=== PATIENT | male | born 1970 | race African-American/Black ===

== ENCOUNTER 2018-12-08 09:49 | Observation (INO) | payer OTHER ==
[~2018-12-08] VITALS: Ht 188 cm; Wt 97.7 kg
[2018-12-08] MEDS ORDERED: KETOROLAC 30 MG/ML VIAL (J1885) IV ONE (10:30)
--- NOTE | 2018-12-08 10:30 | REP ---
Portable chest: Single view. History: Chest pain. Comparison study: No comparison study. Findings: EKG monitoring electrodes overlie the chest. Lungs are well inflated and clear. Heart size is normal. Pulmonary vasculature is not increased. Pleural angles are sharp. No bony abnormality is seen. Impression: Negative portable chest x-ray. Electronically Signed by Alec Qureshi MD 12/08/2018 10:21 A
[2018-12-08 10:48] LABS: BASO % 0.6 % (0.0-1.0); EOS # 0.3 10^3/uL (0.0-0.50); EOS % 5.3 % (0.0-3.0); HEMATOCRIT 43.6 % (42.0-52.0); HEMOGLOBIN 13.9 g/dl (13.5-17.5); LYMPH # 1.7 10^3/uL (1.5-4.5); LYMPH % 32.8 % (24.0-44.0); MEAN CORPUSCULAR HEMOGLOBIN 23.7 pg (27.0-33.0); MEAN CORPUSCULAR HGB CONC 31.9 g/dl (32.0-36.5); MEAN CORPUSCULAR VOLUME 74.4 fl (80.0-96.0); MONO # 0.6 10^3/uL (0.0-0.8); MONO % 11.8 % (0.0-5.0); NEUTROPHILS # 2.6 10^3/uL (1.8-7.7); NEUTROPHILS % 49.1 % (36.0-66.0); PLATELET COUNT, AUTOMATED 275 10^3/uL (150-450); RED BLOOD COUNT 5.86 10^6/uL (4.30-6.10); WHITE BLOOD COUNT 5.3 10^3/uL (4.0-10.0)
[2018-12-08 11:01] LABS: INR 0.97
[2018-12-08 11:04] LABS: D-DIMER QUANT 542.82 ng/ml (<500)
[2018-12-08 11:09] LABS: ALBUMIN 4.2 GM/DL (3.2-5.2); ALT/SGPT 27 U/L (12-78); BILIRUBIN,DIRECT 0.2 MG/DL (0.0-0.2); BLOOD UREA NITROGEN 18 MG/DL (7-18); CALCIUM LEVEL 9.7 MG/DL (8.5-10.1); CARBON DIOXIDE LEVEL 27 MEQ/L (21-32); CHLORIDE LEVEL 101 MEQ/L (98-107); CPK CREATINE PHOSPHOKINASE 300 U/L (39-308); CREATININE FOR GFR 1.02 MG/DL (0.70-1.30); GLOMERULAR FILTRATION RATE > 60.0 (>60); GLUCOSE, FASTING 87 MG/DL (70-100); LIPASE 100 U/L (73-393); MB/CK RELATIVE INDEX 1.13 (< OR =4); NT-PRO BNP 14 PG/ML (<125); POTASSIUM SERUM 5.4 MEQ/L (3.5-5.1); SODIUM LEVEL 137 MEQ/L (136-145); TOTAL PROTEIN 8.9 GM/DL (6.4-8.2); TROPONIN I < 0.02 NG/ML (< 0.10)
[2018-12-08] MEDS ORDERED: ISOVUE-370 76% 100ML VIAL (Q9967) As Ordered ONE (11:17)
--- NOTE | 2018-12-08 11:53 | REP ---
CT pulmonary angiogram: With IV contrast. History: Pleuritic chest pain. Elevated D-dimer. Comparison studies: Comparison is made with today's chest x-ray. Contrast dose: 75 ML of Isovue [address] technique: Helical scanning is acquired and overlapping 1.5 mm and contiguous 3 mm axial images are reformatted. In addition, maximum intensity projection and multiplanar re-formation images are generated in sagittal and coronal imaging projections. CT pulmonary angiographic findings: There is good opacification of the pulmonary arterial tree. Maximal intensity projection images and MPR and axial images show no filling defect or vessel cutoff in the pulmonary arterial tree to suggest pulmonary embolus. Thoracic aorta shows no evidence of aneurysm or dissection. There is no evidence of pleural or pericardial effusion. No hilar or mediastinal mass or adenopathy is observed. No adrenal lesion is seen. The visualized upper abdominal structures are unremarkable. No bony destructive lesion or fracture is noted. The lung boyer are clear. No pulmonary nodule is seen. There is some fissural thickening in the minor fissure. Impression: No CT evidence of pulmonary embolus. Negative CT pulmonary angiogram. Electronically Signed by Alec Qureshi MD 12/08/2018 11:46 A
[2018-12-08 12:28] LABS: CPK CREATINE PHOSPHOKINASE 253 U/L (39-308); MB/CK RELATIVE INDEX 1.15 (< OR =4); TROPONIN I < 0.02 NG/ML (< 0.10)
[2018-12-08 15:05] LABS: POTASSIUM SERUM 6.1 MEQ/L (3.5-5.1)
[2018-12-08] MEDS ORDERED: NS 1,000 ML IV ONE (15:30)
[2018-12-08] MEDS ORDERED: ACETAMINOPHEN TAB 650MG DOSE (2X325MG) PO PRN (16:15)
[2018-12-08] MEDS ORDERED: CALCIUM GLUCONATE 1,000 MG in D5W MINI-BAG PLUS 100 ML IV ONE (16:15)
[2018-12-08 16:33] LABS: MAGNESIUM LEVEL 2.2 MG/DL (1.8-2.4); PHOSPHORUS LEVEL 3.3 MG/DL (2.5-4.9)
--- NOTE | 2018-12-08 16:42 | HPE ---
DATE OF ADMISSION: 12/08/2018 He does not have a primary care provider. Attending with be Dr. Pablito Lisa. CHIEF COMPLAINT: Chest pain. HISTORY OF PRESENT ILLNESS: The patient is a 48-year-old, male who came from the [facility] for chest pain. History is provided by himself. He stated he did not have any medical problems in the past, he did not take any medications. Since last night, he started to develop some chest pain which is located in the front chest, the worst pain is about a 6, the pain is a constant pain, it is a sharp pain and any deep breathing makes the pain worse. No fever, no chills, no nausea, no vomiting. In the emergency room (ER), his initial workup was negative including troponin times two inactive nd EKG is normal and also had a CT angiogram of chest which also did not show any evidence of blood clot. However, his potassium level was 5.4 initially and repeat went up to 6.1, so the medicine service was called for admission. REVIEW OF SYSTEMS: Denies fever, no chills. No headache, blurry vision. No shortness of breath, no coughing. Positive chest pain. No nausea, no vomiting, no abdominal pain, no diarrhea, no constipation. No tingling, weakness, or numbness in arms or lower extremities. All other systems reviewed but negative. PAST MEDICAL HISTORY: None. PAST SURGICAL HISTORY: None. ALLERGIES: No known drug allergies. SOCIAL HISTORY: Denies tobacco use. Denies alcohol abuse. Denies illicit drug abuse. Currently he is in snf. He is FULL CODE. FAMILY HISTORY: No family history of coronary artery disease or diabetes. MEDICATIONS: Did not take any regular medications. PHYSICAL EXAMINATION: VITAL SIGNS: Temperature 96.8, heart rate 50, respiratory rate 18, blood pressure 112/69, oxygen saturation 100% in room air. GENERAL: He is awake, alert, oriented times three. He is not in acute distress. HEENT: Atraumatic. Pupils equal, round, reactive to light. No jaundice. Extraocular muscles intact. Ears, nose, and throat normal. Mouth: Mucosa not dry. NECK: No jugular venous distention (JVD), no bruits. LUNGS: Clear, no wheezing, no crackles. HEART: S1, S2, regular, no murmur. ABDOMEN: Soft, bowel sounds positive, nontender. LOWER EXTREMITIES: He does not have edema in his bilateral lower extremities. NEUROLOGIC: Nonfocal. SKIN: No rash. PSYCHOLOGIC: No acute psychosis. DIAGNOSTIC AND LABORATORIES: Include the following: CBC and differential: WBC 5.3, hemoglobin and hematocrit 14/44, platelets 275. Sodium 137, potassium 5.4, initially up to 6.1, chloride 101, bicarbonate 27, BUN 18, creatinine 0.6, glucose 87, troponin times two is negative, CK within normal limits. EKG sinus bradycardia with some peak T-waves. IMPRESSION: 1. Pleuritic chest pain. 2. Hyperkalemia. PLAN: Patient will be admitted to progressive care unit (PCU) for observation. The underlying of his increased potassium level is not clear. Will give him calcium gluconate plus Kayexalate. Will repeat potassium level in the morning. STEVED
[2018-12-08 17:14] VITALS: BP 137/99
[2018-12-08] MEDS: PATIROMER SORBITEX CALCIUM 8.4 GM POWDER PACKET (VELTASSA) PO SCH (19:32)
[2018-12-08 20:00] VITALS: BP 127/68
[2018-12-08 20:29] LABS: BLOOD UREA NITROGEN 16 MG/DL (7-18); CALCIUM LEVEL 9.1 MG/DL (8.5-10.1); CARBON DIOXIDE LEVEL 31 MEQ/L (21-32); CHLORIDE LEVEL 103 MEQ/L (98-107); CREATININE FOR GFR 1.21 MG/DL (0.70-1.30); GLOMERULAR FILTRATION RATE > 60.0 (>60); GLUCOSE, FASTING 94 MG/DL (70-100); SODIUM LEVEL 138 MEQ/L (136-145)
[2018-12-09] VITALS: BP 109/59
[2018-12-09 04:00] VITALS: BP 109/62
[2018-12-09 04:57] LABS: BLOOD UREA NITROGEN 18 MG/DL (7-18); CALCIUM LEVEL 8.9 MG/DL (8.5-10.1); CARBON DIOXIDE LEVEL 27 MEQ/L (21-32); CHLORIDE LEVEL 105 MEQ/L (98-107); CREATININE FOR GFR 1.14 MG/DL (0.70-1.30); GLOMERULAR FILTRATION RATE > 60.0 (>60); GLUCOSE, FASTING 90 MG/DL (70-100); POTASSIUM SERUM 4.5 MEQ/L (3.5-5.1); SODIUM LEVEL 139 MEQ/L (136-145)
[2018-12-09 08:00] VITALS: BP 134/71
[2018-12-09] MEDS ORDERED: ENOXAPARIN 40 MG/0.4 ML SYRINGE (J1650) SC SCH (09:00)
[2018-12-09 09:39] LABS: CPK CREATINE PHOSPHOKINASE 186 U/L (39-308); MB/CK RELATIVE INDEX 1.02 (< OR =4); TROPONIN I < 0.02 NG/ML (< 0.10)
--- NOTE | 2018-12-09 10:38 | ECGEPIP ---
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
[2018-12-09] MEDS: PATIROMER SORBITEX CALCIUM 8.4 GM POWDER PACKET (VELTASSA) PO SCH (12:30)
--- NOTE | 2018-12-09 14:16 | DS.PDOC ---
Discharge Summary General Date of Admission Dec 08, 2018 at 16:05 Date of Discharge 12/09/18 Discharge Summary PROCEDURES PERFORMED DURING STAY: None. ADMITTING/DISCHARGE DIAGNOSES: Hyperkalemia Chest pain COMPLICATIONS/CHIEF COMPLAINT: Hyperkalemia. HISTORY OF PRESENT ILLNESS: . 48-year-old male with no significant past medical history presented from the [facility] with the chief complaint of chest pain. The patient stated that he was developing substernal chest pain which he described as sharp and worse when taking a deep breath. The patient also stated that the pain was reproducible upon pushing on the chest wall. He also noted that he had been dealing with a runny nose during this time, and a cough when he laying down. He denied any complaints of fevers, chills, shortness breath, palpitations, numbness/tingling of the left arm or neck, abdominal pain, or any nausea/vomiting/diarrhea. He also denied any family history of coronary artery disease. In the ER, initial troponin markers were negative 2, and an EKG did not reveal any acute ST changes. However, the patient was noted to be hyperkalemic with a serum potassium of 5.4 and 6.1 on repeat. The patient was admitted to the hosp italist service for further evaluation and management. During hospitalization, the patient was provided with calcium gluconate and veltassa and his follow-up serum potassium levels were noted to be within normal limits. The patient denied any supplemental intake of potassium. He is also not on any medications at baseline. It is unclear why the patient's serum potassium level was elevated, and could have possibly been attributed to hemolysis. At this time given that the patient's serum potassium level has normalized, and he had no acute events on telemetry we will discharge the patient back to his original facility. I've advised the patient follow-up with a primary care physician within 7 days. He has been instructed to return to the ER for any acute emergencies. DISCHARGE MEDICATIONS: Please see below. ALLERGIES: Please see below. PHYSICAL EXAMINATION ON DISCHARGE: VITAL SIGNS: Please see below. GENERAL: Awake, alert, oriented 3. No acute distress HEENT: Normocephalic, atraumatic NECK: No JVD CARDIOVASCULAR EXAMINATION: Normal rate, normal S1, S2 RESPIRATORY EXAMINATION: Clear to auscultation bilaterally ABDOMINAL EXAMINATION: Soft, nontender, nondistended EXTREMITIES: No erythema or tenderness noted LABORATORY DATA: Please see below. IMAGING: CT pulmonary angiogram: With IV contrast. History: Pleuritic chest pain. Elevated D-dimer. Comparison studies: Comparison is made with today's chest x-ray. Contrast dose: 75 ML of Isovue [address] technique: Helical scanning is acquired and overlapping 1.5 mm and contiguous 3 mm axial images are reformatted. In addition, maximum intensity projection and multiplanar re-formation images are generated in sagittal and coronal imaging projections. CT pulmonary angiographic findings: There is good opacification of the pulmonary arterial tree. Maximal intensity projection images and MPR and axial images show no filling defect or vessel cutoff in the pulmonary arterial tree to suggest pulmonary embolus. Thoracic aorta shows no evidence of aneurysm or dissection. There is no evidence of pleural or pericardial effusion. No hilar or mediastinal mass or adenopathy is observed. No adrenal lesion is seen. The visualized upper abdominal structures are unremarkable. No bony destructive lesion or fracture is noted. The lung boyer are clear. No pulmonary nodule is seen. There is some fissural thickening in the minor fissure. Impression: No CT evidence of pulmonary embolus. Negative CT pulmonary angiogram. Portable chest: Single view. History: Chest pain. Comparison study: No comparison study. Findings: EKG monitoring electrodes overlie the chest. Lungs are well inflated and clear. Heart size is normal. Pulmonary vasculature is not increased. Pleural angles are sharp. No bony abnormality is seen. Impression: Negative portable chest x-ray. PROGNOSIS: Fair ACTIVITY: As tolerated. DIET: Regular diet DISCHARGE PLAN: DISPOSITION: 70 Xfer Other. DISCHARGE INSTRUCTIONS: I've advised the patient follow-up with a primary care physician within 7 days. He has been instructed to return to the ER for any acute emergencies. DISCHARGE CONDITION: Stable. TIME SPENT ON DISCHARGE: Greater than 30 minutes. Vital Signs/I&Os Vital Signs Date Time Temp Pulse Resp B/P (MAP) Pulse Ox O2 Delivery O2 Flow Rate FiO2 12/09/18 08:00 98.5 90 18 134/71 (92) 98 Room Air I&O- Last 24 Hours up to 6 AM 12/09/18 06:00 Intake Total 1110 ml Output Total 500 ml Balance 610 ml Laboratory Data Labs 24H Laboratory Tests 2 12/08/18 19:59: Anion Gap 4L, Glomerular Filtration Rate > 60.0, Blood Urea Nitrogen 16, Creatinine 1.21, Sodium Level 138, Potassium Level 4.0#, Chloride Level 103, Carbon Dioxide Level 31, Calcium Level 9.1 12/09/18 04:06: Anion Gap 7L, Glomerular Filtration Rate > 60.0, Blood Urea Nitrogen 18, Creatinine 1.14, Sodium Level 139, Potassium Level 4.5, Chloride Level 105, Carbon Dioxide Level 27, Calcium Level 8.9 12/09/18 08:47: Total Creatine Kinase 186, Creatine Kinase MB 2.0, Creatine Kinase MB Relative Index 1.02, Troponin I < 0.02 CBC/BMP Laboratory Tests 12/08/18 19:59 Calcium Level 9.1 12/09/18 04:06 Calcium Level 8.9 Discharge Medications No Active Prescriptions or Reported Meds Allergies Coded Allergies: No Known Allergies (Unverified , 12/08/18) ALISA HUMPHREYS MD Dec 09, 2018 14:16
== END 2018-12-09 13:19 | disposition other institution (70) ==
LOC: M ED 09:49 → M ED INP 16:05 → M ICU 17:11
PROVIDERS: ADMIT Hospitalist; ATTEND Internal Medicine
DX: E87.5 Hyperkalemia (principal); R07.9 Chest pain, unspecified
CPT/HCPCS: 36415; 71045; 71275; 80048; 80076; 82550; 82553; 83690; 83735; 83880; 84100; 84132; 84443; 84484; 85025; 85379; 85610; 93005; 93041; 94760; 96361; 96372; 96374; 99285; J0610; J1650; J1885; Q9967